=== PATIENT | female | born 1985 | race Hispanic/Latino ===

== ENCOUNTER 2018-01-15 00:27 | Emergency (ER) | payer MEDICAID ==
[2018-01-15] MEDS ORDERED: ACETAMINOPHEN 325 MG TAB ONE (00:39)
== END 2018-01-15 00:43 | disposition home or self-care (01) ==
LOC: EDH 00:27
DX: O26.891 Other specified pregnancy related conditions, first trimester (principal); M54.41 Lumbago with sciatica, right side; Z3A.08 8 weeks gestation of pregnancy; Z90.49 Acquired absence of other specified parts of digestive tract; Z98.890 Other specified postprocedural states; Z87.891 Personal history of nicotine dependence
CPT/HCPCS: 99282

== ENCOUNTER 2019-07-27 11:08 | Emergency (ER) | payer OTHER | END 2019-07-27 11:39 | disposition home or self-care (01) | LOC: EDH 11:08 | DX: S00.531A Contusion of lip, initial encounter (principal); W51.XXXA Accidental striking against or bumped into by another person, initial encounter; Y93.89 Activity, other specified; Y92.89 Other specified places as the place of occurrence of the external cause; Y99.8 Other external cause status | CPT/HCPCS: 99281 ==